=== PATIENT | female | born 1995 | race Caucasian/White ===

== ENCOUNTER 2018-12-24 09:27 | Emergency (ER) | payer OTHER ==
[2018-12-24] MEDS ORDERED: Rocephin 1000 MG INJ IM STA (09:50)
[2018-12-24 09:52] VITALS: O2SAT 98
[2018-12-24] MEDS ORDERED: Sodium Chloride 0.9% 1000 ML 1,000 ML ONE ×2 (09:52→10:04)
[2018-12-24] MEDS ORDERED: TYLENOL 325 MG ONE (09:54)
--- NOTE | 2018-12-24 09:55 | ERPHSYRPT ---
- History of Present Illness Time Seen by Provider: 12/24/18 09:52 Source: patient Exam Limitations: no limitations Patient Subjective Stated Complaint: pt states about 5am woke up with chills and fever 101. took Tylenol. c/o left jaw pain, left side of jaw swollen states wisdom teeth are coming in. pt states I'm not sure if its my wisdom teeth or my breast causing my fever. states she breast feeding and bilat breasts are sore, full, nipples are sore. Triage Nursing Assessment: left side of face swollen. gums swollen on left lower jaw and inflamed, obvious tooth beginning to erupt. bilat breast are full , tender, redness around areola. no discharge noted around areola. Physician History: pt states about 5am woke up with chills and fever 101. took Tylenol. c/o left jaw pain, left side of jaw swollen states wisdom teeth are coming in. pt states "I'm not sure if its my wisdom teeth or my breast causing my fever". states she breast feeding and bilat breasts are sore, full, nipples are sore. Timing/Duration: today Fever Severity: moderate Fever Therapy WARP TIER: Acetaminophen Associated Symptoms: nausea/vomiting (swollen left face, ) Allergies/Adverse Reactions: acetaminophen [From [place]] Allergy (Verified 12/24/18 09:53) hydrocodone [From [place]] Allergy (Verified 12/24/18 09:53) Home Medications: Vits W-Ca,Fe,FA(<1Mg) [] 1 each PO DAILY 12/24/18 [History] Hx Tetanus, Diphtheria Vaccination/Date Given: Yes Hx Influenza Vaccination/Date Given: No Hx Pneumococcal Vaccination/Date Given: No Immunizations Up to Date: Yes - Review of Systems Constitutional: Fever, Chills, Malaise Eyes: No Symptoms Ears, Nose, & Throat: No Symptoms, Other (left side jaw pain) Respiratory: Other (right side breast is tender, milk dischage ), No Cough, No Dyspnea Cardiac: No Chest Pain, No Edema, No Syncope Abdominal/Gastrointestinal: No Abdominal Pain, No Nausea, No Vomiting, No Diarrhea Genitourinary Symptoms: No Dysuria Musculoskeletal: No Back Pain, No Neck Pain Skin: No Rash Neurological: No Dizziness, No Focal Weakness, No Sensory Changes Psychological: No Symptoms Endocrine: No Symptoms All Other Systems: Reviewed and Negative - Past Medical History Pertinent Past Medical History: No Neurological History: No Pertinent History ENT History: No Pertinent History Cardiac History: No Pertinent History Respiratory History: No Pertinent History Endocrine Medical History: No Pertinent History Musculoskeletal History: No Pertinent History GI Medical History: No Pertinent History History: No Pertinent History Psycho-Social History: No Pertinent History Female Reproductive Disorders: No Pertinent History Other Medical History: MISSCARRIAGE 1 YEAR AGO - Past Surgical History Past Surgical History: Yes Neuro Surgical History: No Pertinent History Cardiac: No Pertinent History Respiratory: No Pertinent History Gastrointestinal: No Pertinent History Genitourinary: No Pertinent History Musculoskeletal: No Pertinent History Female Surgical History: No Pertinent History Other Surgical History: Ganleon cyst from wrist - Social History Smoking Status: Never smoker Exposure to second hand smoke: No Drug Use: none Patient Lives Alone: No - Female History Hx Last Menstrual Period: 12/19/18 Hx Now: No (breast feeds 4 month old son) - Nursing Vital Signs Nursing Vital Signs: Initial Vital Signs Temperature 100.5 F 12/24/18 09:28 Pulse Rate 126 H 12/24/18 09:28 Respiratory Rate 18 12/24/18 09:28 Blood Pressure 125/91 12/24/18 09:28 O2 Sat by Pulse Oximetry 98 12/24/18 09:28 Pain Scale Pain Intensity 7 - Physical Exam General Appearance: mild distress, alert Eye Exam: PERRL/EOMI ENT Exam: normal ENT inspection, No pharyngeal erythema, No tonsillar exudate Neck Exam: supple, full range of motion, No meningismus Respiratory Exam: normal breath sounds, lungs clear, no respiratory distress Cardiovascular/Chest Exam: normal heart sounds, regular rate/rhythm, No murmur, No edema Gastrointestinal/Abdominal Exam: soft, non tender, no distention Extremity Exam: non-tender, normal range of motion, normal inspection, normal capillary refill Neurologic Exam: alert, oriented x 3, cooperative, 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, normal mood/affect, sensation nml, No motor deficits Skin Exam: normal color, warm, dry, other (tender right breast), No rash SpO2: 98 - Course Nursing assessment & vital signs reviewed: Yes Ordered Tests: Active Orders 24 hr Category Date Time Status BLOOD CULTURE Stat Lab 12/24/18 10:00 Received CBC W DIFF Stat Lab 12/24/18 09:50 Completed CMP Stat Lab 12/24/18 09:50 Completed Medication Summary Generic Name Dose Route Start Last Admin Trade Name Freq PRN Reason Stop Dose Admin Sodium Chloride 1,000 mls @ 999 mls/hr 12/24/18 09:50 12/24/18 10:08 Sodium Chloride 0.9% 1000 Ml IV 12/24/18 10:50 999 mls/hr .Q1H1M STA Administration Ceftriaxone Sodium/Dextrose 1 g in 50 mls @ 100 mls/hr 12/24/18 10:15 10:23 Rocephin 1 Gm-D5w 50 Ml Bag IV 12/24/18 10:44 100 mls/hr STAT ONE 100 mls/hr Administration Discontinued Medications Generic Name Dose Route Start Last Admin Trade Name Freubaldo PRN Reason Stop Dose Admin Acetaminophen 975 mg 12/24/18 09:50 12/24/18 10:04 Tylenol 325 Mg PO 12/24/18 09:51 975 mg STAT STA Administration Acetaminophen Confirm 12/24/18 09:54 Tylenol 325 Mg Administered 12/24/18 09:55 Dose 975 mg .ROUTE .STK-MED ONE Sodium Chloride Confirm 12/24/18 09:52 Sodium Chloride 0.9% 1000 Ml Administered 12/24/18 09:53 Dose 1,000 mls @ ud .ROUTE .STK-MED ONE Sodium Chloride Confirm 12/24/18 10:04 Sodium Chloride 0.9% 1000 Ml Administered 12/24/18 10:05 Dose 1,000 mls @ ud .ROUTE .STK-MED ONE Lab/Rad Data: Laboratory Result Diagrams 12/24/18 09:50 12/24/18 09:50 Laboratory Results 12/24/18 12/24/18 Range/Units 09:50 09:50 WBC 16.7 H (4.0-10.5) K/mm3 RBC 4.35 (4.1-5.4) M/mm3 Hgb 12.8 (12.0-16.0) gm/dl Hct 37.4 (35-47) % MCV 86.0 (78-100) fl MCH 29.4 (26-32) pg MCHC 34.2 (32-36) g/dl RDW 12.5 (11.5-14.0) % Plt Count 320 (150-450) K/mm3 MPV 9.4 (6-9.5) fl Gran % 81.6 H (36.0-66.0) % Eos # (Auto) 0.09 (0-0.5) Absolute Lymphs (auto) 1.65 (1.0-4.6) Absolute Monos (auto) 1.30 (0.0-1.3) Lymphocytes % 9.9 L (24.0-44.0) % Monocytes % 7.8 (0.0-12.0) % Eosinophils % 0.5 (0.00-5.0) % Basophils % 0.2 (0.0-0.4) % Absolute Granulocytes 13.65 H (1.4-6.9) Basophils # 0.04 (0-0.4) Sodium 141 (137-145) mmol/L Potassium 3.9 (3.5-5.1) mmol/L Chloride 104 (98-107) mmol/L Carbon Dioxide 25 (22-30) mmol/L Anion Gap 15.9 H (5-15) MEQ/L BUN 20 H (7-17) mg/dL Creatinine 0.74 (0.52-1.04) mg/dL Estimated GFR > 60.0 ML/MIN Glucose 90 (74-106) mg/dL Calcium 9.7 (8.4-10.2) mg/dL Total Bilirubin 0.60 (0.2-1.3) mg/dL AST 17 (14-36) U/L ALT 14 (0-35) U/L Alkaline Phosphatase 114 (38-126) U/L Serum Total Protein 7.7 (6.3-8.2) g/dL Albumin 4.4 (3.5-5.0) g/dL - Progress Progress: improved, pain not gone completely Counseled pt/family regarding: lab results, diagnosis, need for follow-up - Departure Departure Disposition: Home Clinical Impression: Mastitis without abscess, Tooth abscess Condition: Stable Critical Care Time: No Referrals: SUSIE JAMES MD [Primary Care Provider] - Instructions: Mastitis (DC), Mastitis, Tooth Abscess (DC) Additional Instructions: Discharge/Care Plan ELLIE VILLAFUERTE was seen on 12/24/18 in the Emergency Room. The patient was counseled regarding Diagnosis,Lab results, Imaging studies, need for follow up and when to return to the Emergency Room. Prescriptions given: Discharge Note I have spoken with the patient and/or caregivers. I have explained the patient' s condition, diagnosis and treatment plan based on the information available to me at this time. I have answered the patient's and/or caregiver's questions and addressed any concerns. The patient and/or caregivers have as good understanding of the patient's diagnosis, condition and treatment plan as can be expected at this point. The vital signs have been stable. The patient's condition is stable and appropriate for discharge from the emergency department. The patient will pursue further outpatient evaluation with the primary care physician or other designated or consulting physician as outlined in the discharge instructions. The patient and/or caregivers are agreeable to this plan of care and follow-up instructions have been explained in detail. The patient and/or caregivers have received these instruction. The patient/and or caregivers are aware that any significant change in condition or worsening of symptoms should prompt an immediate return to this or the closest emergency department or call 911. ELLIE VILLAFUERTE was seen on 12/24/18 n the Emergency Room. At that time you were treated for an emergent condition, during your visit Laboratory, Radiology and/or other procedures may have been ordered. It is very important that you follow-up with your Primary Care Physician SUSIE JAMES within the next 24-48 hours to review your Emergency Room visit and the final results of testing that was ordered. Some test results such as Urine Cultures, Blood Cultures, and other cultures if ordered will not be finalized for 24-48 hours. If you do not have a Primary Care Provider please call the medical records department at [phone] ext [phone] to obtain a copy of your results or you may sign into our patient portal to obtain these results by visiting us @ [email or web address] and completing the following steps: 1. Click on the Patient Portal link 2. Click the Patient Self Enrollment Link to complete the enrollment form and entering your 3. Once the enrollment form is completed you will receive an email with a temporary ID and password at the email address you provided. 4. Next choose a user name and password. Your user name must be at least 4 characters long and your password must be at least 4 characters long. 5. Choose a security question from the list and provide your answer to the question. If you already have signed into the Health Portal you may access your Health Care Information 22/02 by the following steps: 1. Login to our website @ [email or web address] 2. Enter your original user name and password. FAQS The [facility] Health Portal is an online tool that contains your Lab Results, Radiology Reports, Visit History, Discharge Instructions and Health Summary Lab and Radiology Results will not be available for 72 hours on the portal. The Portal is a secure site, passwords are encryted and URLs are re-written so they cannot be copied and pasted. You and authorized family members are the only ones who can access your Portal. Also there is a timeout feature that protects your information if you leave the Portal page open. If you have technical difficulty please use the Contact Us link on the page this will allow you to submit any questions you have regarding the Portal or you may contact the Medical Record Department at [phone] ext [phone]. Prescriptions: Amoxicillin 500 mg Cap [Amoxil 500 mg] 500 mg PO TID #30 capsule
[2018-12-24] MEDS: TYLENOL 325 MG PO STA (10:04)
[2018-12-24] MEDS: Sodium Chloride 0.9% 1000 ML 1,000 ML IV STA (10:08)
[2018-12-24 10:12] LABS: BASOPHIL % 0.2 % (0.0-0.4); Basophil (Absolute #) 0.04 (0-0.4); Eosinophil % 0.5 % (0.00-5.0); Eosinophil (Absolute #) 0.09 (0-0.5); Granulocyte Absolute (ANC) 13.65 (1.4-6.9); Granulocytes % 81.6 % (36.0-66.0); Hematocrit 37.4 % (35-47); Hemoglobin 12.8 gm/dl (12.0-16.0); Lymphocyte (Absolute #) 1.65 (1.0-4.6); Lymphocytes % 9.9 % (24.0-44.0); Mean Corpuscular Hemoglobin 29.4 pg (26-32); Mean Corpuscular Hgb Concent. 34.2 g/dl (32-36); Mean Platelet Volume 9.4 fl (6-9.5); Monocytes % 7.8 % (0.0-12.0); Platelet Count 320 K/mm3 (150-450); Red Blood Count 4.35 M/mm3 (4.1-5.4); Red Cell Distribution Width 12.5 % (11.5-14.0); White Blood Count 16.7 K/mm3 (4.0-10.5)
[2018-12-24 10:23] LABS: ALBUMIN 4.4 g/dL (3.5-5.0); ALKALINE PHOSPHATASE 114 U/L (38-126); ANION GAP 15.9 MEQ/L (5-15); BLOOD UREA NITROGEN 20 mg/dL (7-17); CHLORIDE 104 mmol/L (98-107); Calcium 9.7 mg/dL (8.4-10.2); Carbon Dioxide 25 mmol/L (22-30); Creatinine 1 0.74 mg/dL (0.52-1.04); Glucose 90 mg/dL (74-106); Potassium 3.9 mmol/L (3.5-5.1); SGOT/AST 17 U/L (14-36); SGPT/ALT 14 U/L (0-35); SODIUM 141 mmol/L (137-145); Total Protein 7.7 g/dL (6.3-8.2)
[2018-12-24] MEDS: ROCEPHIN 1 Gm-D5w 50 ml Bag** 1 G/50 ML IVPB IV ONE (10:23)
[2018-12-24 11:17] VITALS: BP 110/67; PULSE 98
== END 2018-12-24 11:15 | disposition home or self-care (01) ==
LOC: ED 09:27
DX: N61.0 Mastitis without abscess (principal); K04.7 Periapical abscess without sinus
CPT/HCPCS: 36415; 80053; 85025; 87040; 87077; 96360; 96365; 99284; J0696; A9270-GY

== ENCOUNTER 2019-10-22 12:46 | Emergency (ER) | payer OTHER ==
[2019-10-22] MEDS ORDERED: XYLOCAINE 1% HCL 20 ML MDV IJ ONE (12:47)
--- NOTE | 2019-10-22 13:14 | ERPHSYRPT ---
- History of Present Illness Time Seen by Provider: 10/22/19 13:13 Source: patient Exam Limitations: no limitations Patient Subjective Stated Complaint: pt reports sore throat starting yesterday. pt reports her two children and mother all have strep throat. pt reports is 35 weeks , pt reports seeing her [facility] this week for routine check. pt reports some hypertension during which is controlled by medication. pt denies any contractions, abdominal pain, leaking of fluids or vaginal bleeding. Triage Nursing Assessment: pt is aox3, pupils perrl, afebrile, resps easy and non labored, pt radial pulses strong and equal, cap refill < 3 seconds, abdomen, no edema noted. throat appears red. Physician History: pt reports sore throat starting yesterday. pt reports her two children and mother all have strep throat. pt reports is 35 weeks , pt reports seeing her [facility] this week for routine check. pt reports some hypertension during which is controlled by medication. pt denies any contractions, abdominal pain, leaking of fluids or vaginal bleeding. Timing/Duration: gradual onset, yesterday Severity: mild ENT Location: throat Prearrival Treatment: no prearrival treatment Associated Symptoms: denies symptoms Allergies/Adverse Reactions: acetaminophen [From [place]] Allergy (Verified 12/24/18 09:53) hydrocodone [From [place]] Allergy (Verified 12/24/18 09:53) Home Medications: Vits W-Ca,Fe,FA(<1Mg) [] 1 each PO DAILY 12/24/18 [History] Hx Tetanus, Diphtheria Vaccination/Date Given: Yes Hx Influenza Vaccination/Date Given: Yes Hx Pneumococcal Vaccination/Date Given: No Immunizations Up to Date: Yes Travel Risk - International Travel Have you traveled outside of the country in past 3 weeks: No Have you or anyone close to you been diagnosed with or: No Do your reside in a community with a known COVID-19 case?: No - Coronavirus Screening Has patient experienced Coronavirus symptoms: No - Review of Systems Constitutional: No Fever, No Chills Eyes: No Symptoms Ears, Nose, & Throat: No Symptoms, Throat Pain Respiratory: No Cough, No Dyspnea Cardiac: No Chest Pain, No Edema, No Syncope Abdominal/Gastrointestinal: No Abdominal Pain, No Nausea, No Vomiting, No Diarrhea Genitourinary Symptoms: No Dysuria Musculoskeletal: No Back Pain, No Neck Pain Skin: No Rash Neurological: No Dizziness, No Focal Weakness, No Sensory Changes Psychological: No Symptoms Endocrine: No Symptoms All Other Systems: Reviewed and Negative - Past Medical History Pertinent Past Medical History: No Neurological History: No Pertinent History ENT History: No Pertinent History Cardiac History: No Pertinent History Respiratory History: No Pertinent History Endocrine Medical History: No Pertinent History Musculoskeletal History: No Pertinent History GI Medical History: No Pertinent History History: No Pertinent History Psycho-Social History: No Pertinent History Female Reproductive Disorders: No Pertinent History Other Medical History: MISCARRIAGE 1 YEAR AGO - Past Surgical History Past Surgical History: Yes Neuro Surgical History: No Pertinent History Cardiac: No Pertinent History Respiratory: No Pertinent History Gastrointestinal: No Pertinent History Genitourinary: No Pertinent History Musculoskeletal: No Pertinent History, Orthopedic Surgery Female Surgical History: No Pertinent History Other Surgical History: Ganglion cyst from wrist - Social History Smoking Status: Never smoker Exposure to second hand smoke: No Drug Use: none Patient Lives Alone: No - Female History Hx Now: Yes Expected Date of Delivery: 11/25/19 - Nursing Vital Signs Nursing Vital Signs: Initial Vital Signs Temperature 98.7 F 10/22/19 12:51 Pulse Rate 125 H 10/22/19 12:51 Respiratory Rate 20 10/22/19 12:51 Blood Pressure 130/89 10/22/19 12:51 O2 Sat by Pulse Oximetry 100 10/22/19 12:51 Pain Scale Pain Intensity 8 - Physical Exam General Appearance: no apparent distress, alert Eye Exam: bilateral eye: PERRL, EOMI Nasal Exam: normal inspection Throat Exam: pharynx normal, moist mucus membranes, pharynx swelling, No tonsillar exudate Neck Exam: supple Cardiovascular/Respiratory Exam: normal breath sounds, regular rate/rhythm Abdominal Exam: non-tender, soft Neurologic Exam: alert, oriented x 3, sensation nml, No motor deficits Skin Exam: normal color, warm, dry SpO2: 100 - Course Nursing assessment & vital signs reviewed: Yes Ordered Tests: Medication Summary Generic Name Dose Route Start Last Admin Trade Name Freq PRN Reason Stop Dose Admin Ceftriaxone Sodium 1,000 mg 10/22/19 13:35 Rocephin 1000 Mg Inj IM 10/22/19 13:36 STAT ONE Lab/Rad Data: Laboratory Results 10/22/19 Range/Units Unknown Group A Strep Antibody DETECTED (NEGATIVE) - Progress Progress: improved Counseled pt/family regarding: lab results, diagnosis, need for follow-up - Departure Departure Disposition: Home Clinical Impression: Strep pharyngitis Condition: Stable Critical Care Time: No Referrals: SUSIE JAMES MD [Primary Care Provider] - Instructions: Sore Throat, Adult (DC) Additional Instructions: ELLIE VILLAFUERTE was seen on 10/22/19 n the Emergency Room. At that time you were treated for an emergent condition, during your visit Laboratory, Radiology and/or other procedures may have been ordered. It is very important that you follow-up with your Primary Care Physician SUSIE JAMES within the next 24-48 hours to review your Emergency Room visit and the final results of testing that was ordered. Some test results such as Urine Cultures, Blood Cultures, and other cultures if ordered will not be finalized for 24-48 hours. If you do not have a Primary Care Provider please call the medical records department at [phone] ext [phone] to obtain a copy of your results or you may sign into our patient portal to obtain these results by visiting us @ [email or web address] and completing the following steps: 1. Click on the Patient Portal link 2. Click the Patient Self Enrollment Link to complete the enrollment form and entering your 3. Once the enrollment form is completed you will receive an email with a temporary ID and password at the email address you provided. 4. Next choose a user name and password. Your user name must be at least 4 characters long and your password must be at least 4 characters long. 5. Choose a security question from the list and provide your answer to the question. If you already have signed into the Health Portal you may access your Health Care Information 22/02 by the following steps: 1. Login to our website @ [email or web address] 2. Enter your original user name and password. FAQS The [facility] Health Portal is an online tool that contains your Lab Results, Radiology Reports, Visit History, Discharge Instructions and Health Summary Lab and Radiology Results will not be available for 72 hours on the portal. The Portal is a secure site, passwords are encryted and URLs are re-written so they cannot be copied and pasted. You and authorized family members are the only ones who can access your Portal. Also there is a timeout feature that protects your information if you leave the Portal page open. If you have technical difficulty please use the Contact Us link on the page this will allow you to submit any questions you have regarding the Portal or you may contact the Medical Record Department at [phone] ext [phone]. Prescriptions: Amoxicillin 500 mg Cap [Amoxil 500 mg] 500 mg PO TID #30 capsule
[2019-10-22] MEDS ORDERED: Rocephin 1000 MG INJ IM ONE (13:35)
[2019-10-22] MEDS ORDERED: Rocephin 1000 MG INJ ONE (13:48)
[2019-10-22 14:12] VITALS: BP 128/80; PULSE 108; O2SAT 99
== END 2019-10-22 14:12 | disposition home or self-care (01) ==
LOC: ED 12:46
DX: J02.0 Streptococcal pharyngitis (principal)
CPT/HCPCS: 87651; 96372; 99284; J0696

== ENCOUNTER 2020-07-15 19:08 | Emergency (ER) | payer OTHER ==
[2020-07-15] MEDS ORDERED: Sodium Chloride 0.9% 1000 ML 1,000 ML ONE ×2 (19:30→21:37)
[2020-07-15] MEDS: Sodium Chloride 0.9% 1000 ML 1,000 ML IV STA ×2 (19:38→21:38)
[2020-07-15] MEDS ORDERED: D5w 100ML Mini Bag 100 ML 100 ML IV ONE (19:52)
--- NOTE | 2020-07-15 19:53 | ERPHSYRPT ---
- History of Present Illness Time Seen by Provider: 07/15/20 19:25 Source: patient Exam Limitations: no limitations Patient Subjective Stated Complaint: pt c/o lt wisdom tooth pain, running fever since Sat, and chills, aches, fatigue Triage Nursing Assessment: pt c/o Lt wisdom tooth pain, running fever since Sat (up to 100.4), chills, body aches and fatigue. pt was exposed to Covid on , quarantined for 14 days. Pt had no symptoms until Wednesday. Physician History: Patient is a 24-year-old female presents to our ED with complaints of pain to her wisdom tooth. Patient also states she has been experiencing fevers body aches for 2 to 3 days. Patient was exposed to Covid on . However symptoms just recently started. No associated nausea or vomiting. No diarrhea. No rash. Patient's pain at her left mandibular molar is described as an ache that is well localized. Pain worse with mastication. Pain improved with rest. Patient denies trauma. No headache. No difficulty swallowing. No pain at the base of her tongue. Patient is otherwise healthy. She voices no other complaints or concerns at this time. Timing/Duration: today Severity: moderate Modifying Factors: Improves With: nothing Associated Symptoms: No nausea, No vomiting, No abdominal pain, No shortness of breath, No diaphoresis, No chills, No chest pain, No headaches, No loss of appetite, No malaise, No syncope Allergies/Adverse Reactions: acetaminophen [From [place]] Adverse Reaction (Mild, Verified 07/15/20 19:25) Rash hydrocodone [From [place]] Adverse Reaction (Mild, Verified 07/15/20 19:25) Rash Hx Tetanus, Diphtheria Vaccination/Date Given: Yes Hx Influenza Vaccination/Date Given: No Hx Pneumococcal Vaccination/Date Given: No Immunizations Up to Date: Yes Travel Risk - International Travel Have you traveled outside of the country in past 3 weeks: No - Coronavirus Screening Symptoms: Fever, Headaches/Body Aches/Fatigue Close contact with a COVID-19 positive Pt in past 14-21 Days: Yes - Review of Systems Constitutional: No Symptoms, No Fever, No Chills Eyes: No Symptoms Ears, Nose, & Throat: No Symptoms Respiratory: No Symptoms, No Cough, No Dyspnea Cardiac: No Symptoms, No Chest Pain, No Edema, No Syncope Abdominal/Gastrointestinal: No Symptoms, No Abdominal Pain, No Nausea, No Vomiting, No Diarrhea Genitourinary Symptoms: No Symptoms, No Dysuria Musculoskeletal: No Symptoms, No Back Pain, No Neck Pain Skin: No Symptoms, No Rash Neurological: No Symptoms, No Dizziness, No Focal Weakness, No Sensory Changes Psychological: No Symptoms Endocrine: No Symptoms Hematologic/Lymphatic: No Symptoms Immunological/Allergic: No Symptoms All Other Systems: Reviewed and Negative - Past Medical History Pertinent Past Medical History: Yes Neurological History: No Pertinent History ENT History: No Pertinent History Cardiac History: No Pertinent History Respiratory History: No Pertinent History Endocrine Medical History: No Pertinent History Musculoskeletal History: No Pertinent History GI Medical History: No Pertinent History History: No Pertinent History Psycho-Social History: No Pertinent History Female Reproductive Disorders: No Pertinent History Other Medical History: MISCARRIAGE 1 YEAR AGO - Past Surgical History Past Surgical History: Yes Neuro Surgical History: No Pertinent History Cardiac: No Pertinent History Respiratory: No Pertinent History Gastrointestinal: No Pertinent History Genitourinary: No Pertinent History Musculoskeletal: Orthopedic Surgery Female Surgical History: No Pertinent History Other Surgical History: Ganglion cyst from wrist - Social History Smoking Status: Never smoker Exposure to second hand smoke: Yes Drug Use: none Patient Lives Alone: No - Female History Hx Now: No - Nursing Vital Signs Nursing Vital Signs: Initial Vital Signs Temperature 98.8 F 07/15/20 19:16 Pulse Rate 137 H 07/15/20 19:16 Respiratory Rate 18 07/15/20 19:16 Blood Pressure 157/94 07/15/20 19:16 O2 Sat by Pulse Oximetry 100 07/15/20 19:16 Pain Scale Pain Intensity 5 - Physical Exam General Appearance: no apparent distress, alert Eye Exam: PERRL/EOMI, eyes nml inspection Ears, Nose, Throat Exam: normal ENT inspection, TMs normal, pharynx normal, moist mucous membranes, other (Tooth #17 is tender. The adjacent gingiva is swollen and tender. No obvious facial swelling. No trismus. No sublingual masses. Patient tolerating oral secretions well.) Neck Exam: normal inspection, non-tender, supple, full range of motion Respiratory Exam: normal breath sounds, lungs clear, No respiratory distress Cardiovascular Exam: normal heart sounds, normal peripheral pulses, other (And his tachycardia rate 137.) Gastrointestinal/Abdomen Exam: soft, normal bowel sounds, No tenderness, No mass Back Exam: normal inspection, normal range of motion, No CVA tenderness, No vertebral tenderness Extremity Exam: normal inspection, normal range of motion, pelvis stable Neurologic Exam: alert, oriented x 3, cooperative, normal mood/affect, nml cerebellar function, nml station & gait, sensation nml, No motor deficits Skin Exam: normal color, warm, dry, No rash Lymphatic Exam: No adenopathy SpO2 Interpretation: normal SpO2: 99 O2 Delivery: Room Air - Course Nursing assessment & vital signs reviewed: Yes EKG Interpreted by Me: RATE, Sinus Rhythm, Sinus Tach (118), NORMAL AXIS, NORMAL INTERVALS Ordered Tests: Active Orders 24 hr Category Date Time Status Dungeon Master STAT Care 07/15/20 19:20 Active EKG-ER Only STAT Care 07/15/20 19:18 Active IV Insertion STAT Care 07/15/20 19:18 Active Pulse Oximetry (ED) STAT Care 07/15/20 19:18 Active BLOOD CULTURE Stat Lab 07/15/20 19:53 Received CBC W DIFF Stat Lab 07/15/20 19:53 Completed CMP Stat Lab 07/15/20 19:53 Completed CULTURE,URINE Stat Lab 07/15/20 19:46 Received D-DIMER QUANTITATIVE Stat Lab 07/15/20 19:53 Completed HCG,QUALITATIVE URINE Stat Lab 07/15/20 19:46 Completed INFLUENZA A+B FRANCO Stat Lab 07/15/20 19:43 Completed Lactic Acid Stat Lab 07/15/20 20:30 Completed MAGNESIUM Stat Lab 07/15/20 19:53 Completed TROPONIN Q3H Lab 07/15/20 19:52 Completed TROPONIN Q3H Lab 07/15/20 22:30 Ordered TROPONIN Q3H Lab 07/16/20 01:30 Ordered TROPONIN Q3H Lab 07/16/20 04:30 Ordered TROPONIN Q3H Lab 07/16/20 07:30 Ordered Medication Summary Generic Name Dose Route Start Last Admin Trade Name Freq PRN Reason Stop Dose Admin Sodium Chloride 1,000 mls @ 999 mls/hr 07/15/20 21:34 07/15/20 21:38 Sodium Chloride 0.9% 1000 Ml IV 07/15/20 22:34 999 mls/hr .Q1H1M STA Administration Discontinued Medications Generic Name Dose Route Start Last Admin Trade Name Freq PRN Reason Stop Dose Admin Acetaminophen 975 mg 07/15/20 21:50 Tylenol 325 Mg PO 07/15/20 21:51 STAT ONE Sodium Chloride 1,000 mls @ 999 mls/hr 07/15/20 19:18 07/15/20 20:39 Sodium Chloride 0.9% 1000 Ml IV 07/15/20 20:18 Infused .Q1H1M STA Infusion Sodium Chloride Confirm 07/15/20 19:30 Sodium Chloride 0.9% 1000 Ml Administered 07/15/20 19:31 Dose 1,000 mls @ ud .ROUTE .STK-MED ONE Dextrose Confirm 07/15/20 19:52 D5w 100ml Mini Bag 100 Ml Administered 07/15/20 19:53 Dose 100 mls @ ud IV .STK-MED ONE Sodium Chloride Confirm 07/15/20 21:37 Sodium Chloride 0.9% 1000 Ml Administered 07/15/20 21:38 Dose 1,000 mls @ ud .ROUTE .STK-MED ONE Lab/Rad Data: Laboratory Result Diagrams 07/15/20 19:53 07/15/20 19:53 Laboratory Results 07/15/20 07/15/20 07/15/20 Range/Units 20:30 19:55 19:53 WBC (4.0-10.5) K/mm3 RBC (4.1-5.4) M/mm3 Hgb (12.0-16.0) gm/dl Hct (35-47) % MCV (78-100) fl MCH (26-32) pg MCHC (32-36) g/dl RDW (11.5-14.0) % Plt Count (150-450) K/mm3 MPV (7.5-11.0) fl Gran % (36.0-66.0) % Eos # (Auto) (0-0.5) Absolute Lymphs (auto) (1.0-4.6) Absolute Monos (auto) (0.0-1.3) Lymphocytes % (24.0-44.0) % Monocytes % (0.0-12.0) % Eosinophils % (0.00-5.0) % Basophils % (0.0-0.4) % Absolute Granulocytes (1.4-6.9) Basophils # (0-0.4) D-Dimer 348 (215-500) ng/mL Sodium (137-145) mmol/L Potassium (3.5-5.1) mmol/L Chloride (98-107) mmol/L Carbon Dioxide (22-30) mmol/L Anion Gap (5-15) MEQ/L BUN (7-17) mg/dL Creatinine (0.52-1.04) mg/dL Estimated GFR ML/MIN Glucose (74-106) mg/dL Lactic Acid 0.9 (0.4-2.0) Calcium (8.4-10.2) mg/dL Magnesium (1.6-2.3) mg/dL Total Bilirubin (0.2-1.3) mg/dL AST (14-36) U/L ALT (0-35) U/L Alkaline Phosphatase (38-126) U/L Troponin I (0.000-0.034) ng/mL Serum Total Protein (6.3-8.2) g/dL Albumin (3.5-5.0) g/dL Urinalys Dipstick Clnc Urine Color (YELLOW) Urine Appearance (CLEAR) Urine pH (5-6) Ur Specific [place] (1.005-1.025) POC Urine Protein Conf (Negative) Urine Ketones (NEGATIVE) Urine Nitrite (NEGATIVE) Urine Bilirubin (NEGATIVE) Urine Urobilinogen (0-1) mg/dL Urine Leukocytes (NEGATIVE) Urine WBC (Auto) (0-5) /HPF Urine RBC (Auto) (0-2) /HPF U Epithel Cells (Auto) (FEW) /HPF Urine Bacteria (Auto) (NEGATIVE) /HPF Urine RBC (0-5) Sukhdeep/ul Urine Mucus (Auto) (NEGATIVE) /HPF Ur Culture Indicated? Urine Glucose (NEGATIVE) mg/dL Urine HCG, Qual (Negative) Influenza Type A Ag (NEGATIVE) Influenza Type B Ag (NEGATIVE) Group A Strep Antibody NOT DETECTED (NEGATIVE) 07/15/20 07/15/20 07/15/20 Range/Units 19:53 19:53 19:53 WBC 12.3 H (4.0-10.5) K/mm3 RBC 4.27 (4.1-5.4) M/mm3 Hgb 12.7 (12.0-16.0) gm/dl Hct 38.0 (35-47) % MCV 89.0 (78-100) fl MCH 29.7 (26-32) pg MCHC 33.4 (32-36) g/dl RDW 12.2 (11.5-14.0) % Plt Count 399 (150-450) K/mm3 MPV 9.5 (7.5-11.0) fl Gran % 75.1 H (36.0-66.0) % Eos # (Auto) 0.03 (0-0.5) Absolute Lymphs (auto) 1.97 (1.0-4.6) Absolute Monos (auto) 1.05 (0.0-1.3) Lymphocytes % 16.0 L (24.0-44.0) % Monocytes % 8.5 (0.0-12.0) % Eosinophils % 0.2 (0.00-5.0) % Basophils % 0.2 (0.0-0.4) % Absolute Granulocytes 9.25 H (1.4-6.9) Basophils # 0.02 (0-0.4) D-Dimer (215-500) ng/mL Sodium 136 L (137-145) mmol/L Potassium 3.7 (3.5-5.1) mmol/L Chloride 104 (98-107) mmol/L Carbon Dioxide 23 (22-30) mmol/L Anion Gap 13.1 (5-15) MEQ/L BUN 16 (7-17) mg/dL Creatinine 0.76 (0.52-1.04) mg/dL Estimated GFR > 60.0 ML/MIN Glucose 102 (74-106) mg/dL Lactic Acid (0.4-2.0) Calcium 9.4 (8.4-10.2) mg/dL Magnesium 1.7 (1.6-2.3) mg/dL Total Bilirubin 0.40 (0.2-1.3) mg/dL AST 19 (14-36) U/L ALT 13 (0-35) U/L Alkaline Phosphatase 105 (38-126) U/L Troponin I (0.000-0.034) ng/mL Serum Total Protein 8.0 (6.3-8.2) g/dL Albumin 4.1 (3.5-5.0) g/dL Urinalys Dipstick Clnc Urine Color (YELLOW) Urine Appearance (CLEAR) Urine pH (5-6) Ur Specific [place] (1.005-1.025) POC Urine Protein Conf (Negative) Urine Ketones (NEGATIVE) Urine Nitrite (NEGATIVE) Urine Bilirubin (NEGATIVE) Urine Urobilinogen (0-1) mg/dL Urine Leukocytes (NEGATIVE) Urine WBC (Auto) (0-5) /HPF Urine RBC (Auto) (0-2) /HPF U Epithel Cells (Auto) (FEW) /HPF Urine Bacteria (Auto) (NEGATIVE) /HPF Urine RBC (0-5) Sukhdeep/ul Urine Mucus (Auto) (NEGATIVE) /HPF Ur Culture Indicated? Urine Glucose (NEGATIVE) mg/dL Urine HCG, Qual (Negative) Influenza Type A Ag (NEGATIVE) Influenza Type B Ag (NEGATIVE) Group A Strep Antibody (NEGATIVE) 07/15/20 07/15/20 07/15/20 Range/Units 19:52 19:46 19:46 WBC (4.0-10.5) K/mm3 RBC (4.1-5.4) M/mm3 Hgb (12.0-16.0) gm/dl Hct (35-47) % MCV (78-100) fl MCH (26-32) pg MCHC (32-36) g/dl RDW (11.5-14.0) % Plt Count (150-450) K/mm3 MPV (7.5-11.0) fl Gran % (36.0-66.0) % Eos # (Auto) (0-0.5) Absolute Lymphs (auto) (1.0-4.6) Absolute Monos (auto) (0.0-1.3) Lymphocytes % (24.0-44.0) % Monocytes % (0.0-12.0) % Eosinophils % (0.00-5.0) % Basophils % (0.0-0.4) % Absolute Granulocytes (1.4-6.9) Basophils # (0-0.4) D-Dimer (215-500) ng/mL Sodium (137-145) mmol/L Potassium (3.5-5.1) mmol/L Chloride (98-107) mmol/L Carbon Dioxide (22-30) mmol/L Anion Gap (5-15) MEQ/L BUN (7-17) mg/dL Creatinine (0.52-1.04) mg/dL Estimated GFR ML/MIN Glucose (74-106) mg/dL Lactic Acid (0.4-2.0) Calcium (8.4-10.2) mg/dL Magnesium (1.6-2.3) mg/dL Total Bilirubin (0.2-1.3) mg/dL AST (14-36) U/L ALT (0-35) U/L Alkaline Phosphatase (38-126) U/L Troponin I < 0.012 (0.000-0.034) ng/mL Serum Total Protein (6.3-8.2) g/dL Albumin (3.5-5.0) g/dL Urinalys Dipstick Clnc MAIN LAB Urine Color YELLOW (YELLOW) Urine Appearance CLEAR (CLEAR) Urine pH 6.0 (5-6) Ur Specific [place] >=1.030 (1.005-1.025) POC Urine Protein Conf TRACE (Negative) Urine Ketones TRACE (NEGATIVE) Urine Nitrite NEGATIVE (NEGATIVE) Urine Bilirubin NEGATIVE (NEGATIVE) Urine Urobilinogen 2 (0-1) mg/dL Urine Leukocytes TRACE (NEGATIVE) Urine WBC (Auto) 6-10 (0-5) /HPF Urine RBC (Auto) 6-10 (0-2) /HPF U Epithel Cells (Auto) RARE (FEW) /HPF Urine Bacteria (Auto) NONE SEEN (NEGATIVE) /HPF Urine RBC SMALL (0-5) Sukhdeep/ul Urine Mucus (Auto) SLIGHT (NEGATIVE) /HPF Ur Culture Indicated? YES Urine Glucose NEGATIVE (NEGATIVE) mg/dL Urine HCG, Qual NEGATIVE (Negative) Influenza Type A Ag (NEGATIVE) Influenza Type B Ag (NEGATIVE) Group A Strep Antibody (NEGATIVE) 07/15/20 Range/Units 19:43 WBC (4.0-10.5) K/mm3 RBC (4.1-5.4) M/mm3 Hgb (12.0-16.0) gm/dl Hct (35-47) % MCV (78-100) fl MCH (26-32) pg MCHC (32-36) g/dl RDW (11.5-14.0) % Plt Count (150-450) K/mm3 MPV (7.5-11.0) fl Gran % (36.0-66.0) % Eos # (Auto) (0-0.5) Absolute Lymphs (auto) (1.0-4.6) Absolute Monos (auto) (0.0-1.3) Lymphocytes % (24.0-44.0) % Monocytes % (0.0-12.0) % Eosinophils % (0.00-5.0) % Basophils % (0.0-0.4) % Absolute Granulocytes (1.4-6.9) Basophils # (0-0.4) D-Dimer (215-500) ng/mL Sodium (137-145) mmol/L Potassium (3.5-5.1) mmol/L Chloride (98-107) mmol/L Carbon Dioxide (22-30) mmol/L Anion Gap (5-15) MEQ/L BUN (7-17) mg/dL Creatinine (0.52-1.04) mg/dL Estimated GFR ML/MIN Glucose (74-106) mg/dL Lactic Acid (0.4-2.0) Calcium (8.4-10.2) mg/dL Magnesium (1.6-2.3) mg/dL Total Bilirubin (0.2-1.3) mg/dL AST (14-36) U/L ALT (0-35) U/L Alkaline Phosphatase (38-126) U/L Troponin I (0.000-0.034) ng/mL Serum Total Protein (6.3-8.2) g/dL Albumin (3.5-5.0) g/dL Urinalys Dipstick Clnc Urine Color (YELLOW) Urine Appearance (CLEAR) Urine pH (5-6) Ur Specific [place] (1.005-1.025) POC Urine Protein Conf (Negative) Urine Ketones (NEGATIVE) Urine Nitrite (NEGATIVE) Urine Bilirubin (NEGATIVE) Urine Urobilinogen (0-1) mg/dL Urine Leukocytes (NEGATIVE) Urine WBC (Auto) (0-5) /HPF Urine RBC (Auto) (0-2) /HPF U Epithel Cells (Auto) (FEW) /HPF Urine Bacteria (Auto) (NEGATIVE) /HPF Urine RBC (0-5) Sukhdeep/ul Urine Mucus (Auto) (NEGATIVE) /HPF Ur Culture Indicated? Urine Glucose (NEGATIVE) mg/dL Urine HCG, Qual (Negative) Influenza Type A Ag NEGATIVE (NEGATIVE) Influenza Type B Ag POSITIVE (NEGATIVE) Group A Strep Antibody (NEGATIVE) - Progress Progress: improved Progress Note: 07/15/20 22:00 Patient reassessed. Pain improved. Vital stable. Patient was initially tachycardic upon arrival. Heart rate normalized. After IV fluid administration. Work-up significant for influenza B. Covid pending. Rapid strep negative. Will discharge home with a prescription for penicillin VK. Patient will call her dentist within 48 hours for reevaluation. Patient agrees to follow-up with her primary care doctor within 48 hours for reevaluation. Counseled pt/family regarding: lab results, diagnosis, need for follow-up - Departure Departure Disposition: Home Clinical Impression: Influenza B, Dental abscess Condition: Stable Critical Care Time: No Referrals: SUSIE JAMES MD [Primary Care Provider] - Additional Instructions: Discharge/Care Plan ELLIE VILLAFUERTE was seen on 07/15/20 in the Emergency Room. The patient was counseled regarding Diagnosis,Lab results, Imaging studies, need for follow up and when to return to the Emergency Room. Prescriptions given: Discharge Note I have spoken with the patient and/or caregivers. I have explained the patient's condition, diagnosis and treatment plan based on the information available to me at this time. I have answered the patient's and/or caregiver's questions and addressed any concerns. The patient and/or caregivers have as good understanding of the patient's diagnosis, condition and treatment plan as can be expected at this point. The vital signs have been stable. The patient's condition is stable and appropriate for discharge from the emergency department. The patient will pursue further outpatient evaluation with the primary care physician or other designated or consulting physician as outlined in the discharge instructions. The patient and/or caregivers are agreeable to this plan of care and follow-up instructions have been explained in detail. The patient and/or caregivers have received these instruction. The patient/and or caregivers are aware that any significant change in condition or worsening of symptoms should prompt an immediate return to this or the closest emergency department or call 911. Prescriptions: Penicillin V Potassium 500 mg PO QID 7 Days #28 tablet
[2020-07-15 20:08] LABS: Absolute Neutrophil Ct (ANC) 9.25 (1.4-6.9); BASOPHIL % 0.2 % (0.0-0.4); Basophil (Absolute #) 0.02 (0-0.4); Eosinophil % 0.2 % (0.00-5.0); Eosinophil (Absolute #) 0.03 (0-0.5); Hemoglobin 12.7 gm/dl (12.0-16.0); Lymphocyte (Absolute #) 1.97 (1.0-4.6); Mean Corpuscular Hemoglobin 29.7 pg (26-32); Mean Corpuscular Hgb Concent. 33.4 g/dl (32-36); Mean Platelet Volume 9.5 fl (7.5-11.0); Monocyte (Absolute #) 1.05 (0.0-1.3); Monocytes % 8.5 % (0.0-12.0); Neutrophil % 75.1 % (36.0-66.0); Platelet Count 399 K/mm3 (150-450); Red Blood Count 4.27 M/mm3 (4.1-5.4); Red Cell Distribution Width 12.2 % (11.5-14.0); White Blood Count 12.3 K/mm3 (4.0-10.5)
[2020-07-15 20:18] LABS: ALBUMIN 4.1 g/dL (3.5-5.0); ALKALINE PHOSPHATASE 105 U/L (38-126); ANION GAP 13.1 MEQ/L (5-15); BLOOD UREA NITROGEN 16 mg/dL (7-17); CHLORIDE 104 mmol/L (98-107); Calcium 9.4 mg/dL (8.4-10.2); Carbon Dioxide 23 mmol/L (22-30); Creatinine 1 0.76 mg/dL (0.52-1.04); EST GLOMERULAR FILTRATION RATE > 60.0 ML/MIN; Glucose 102 mg/dL (74-106); Potassium 3.7 mmol/L (3.5-5.1); SGOT/AST 19 U/L (14-36); SGPT/ALT 13 U/L (0-35); SODIUM 136 mmol/L (137-145)
[2020-07-15 20:24] LABS: INFLUENZA A NEGATIVE (NEGATIVE)
[2020-07-15 20:25] LABS: INFLUENZA B POSITIVE (NEGATIVE)
[2020-07-15 20:35] LABS: Appearance CLEAR (CLEAR); Bilirubin NEGATIVE (NEGATIVE); Glucose NEGATIVE (NEGATIVE); Ketones TRACE (NEGATIVE); RBC SMALL Ery/ul (0-5); Specific Gravity >=1.030 (1.005-1.025)
[2020-07-15 20:36] LABS: Dipstick done @ ? MAIN LAB; Nitrite NEGATIVE (NEGATIVE); Protein,Urine Dip TRACE (Negative); Urobilinogen 2 mg/dL (0-1)
[2020-07-15 21:06] LABS: Epithelial Cells RARE /HPF (FEW); Mucus SLIGHT /HPF (NEGATIVE)
[2020-07-15 21:07] LABS: Bacteria NONE SEEN /HPF (NEGATIVE)
[2020-07-15] MEDS ORDERED: TYLENOL 325 MG ONE (21:58)
[2020-07-15] MEDS: TYLENOL 325 MG PO ONE (21:59)
[2020-07-15 22:10] VITALS: BP 116/78; PULSE 98; O2SAT 100
== END 2020-07-15 22:22 | disposition home or self-care (01) ==
LOC: ED 19:08
DX: J11.1 Influenza due to unidentified influenza virus with other respiratory manifestations (principal); K04.7 Periapical abscess without sinus
CPT/HCPCS: 36000; 36415; 80053; 81015; 83605; 83735; 84484; 84703; 85025; 85379; 87040; 87086; 87400; 87651; 93005; 93041; 94760; 96360; 99284; U0003; A9270-GY

== ENCOUNTER 2023-07-30 12:05 | Emergency (ER) | payer OTHER ==
--- NOTE | 2023-07-30 12:17 | ERPHSYRPT ---
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 Patient does take Adderall each day. She has not increased that dose. She has not been using any illicit drugs. There are no new stressors in her life per her report. Patient has no known cardiac disease. Patient has not had a fever. She denies cough. She has had no chills. Patient denies abdominal pain. She denies nausea vomiting diarrhea symptoms. I did review an old EKG from 07/15/2020 which did show sinus tachycardia with a heart rate of 118. Timing/Duration: yesterday Severity: mild Associated Symptoms: shortness of breath (With deep inspiration) Allergies/Adverse Reactions: acetaminophen [From [facility]] Adverse Reaction (Mild, Verified 07/30/23 12:14) Rash hydrocodone [From [facility]] Adverse Reaction (Mild, Verified 07/30/23 12:14) Rash Home Medications: Dextroamphetamine/Amphetamine [Adderall 10 mg Tablet] 10 mg PO DAILY 07/30/23 [History] Hx Tetanus, Diphtheria Vaccination/Date Given: Yes Hx Influenza Vaccination/Date Given: No Hx Pneumococcal Vaccination/Date Given: No Travel Risk - International Travel Have you traveled outside of the country in past 3 weeks: No - Coronavirus Screening Are you exhibiting any of the following symptoms?: No Close contact with a COVID-19 positive Pt in past 14-21 Days: No - Review of Systems Constitutional: No Symptoms Eyes: No Symptoms Ears, Nose, & Throat: No Symptoms Respiratory: Dyspnea (With deep inspiration only) Cardiac: Palpitations Abdominal/Gastrointestinal: No Symptoms Genitourinary Symptoms: No Symptoms Musculoskeletal: No Symptoms Skin: No Symptoms Neurological: No Symptoms Psychological: No Symptoms Endocrine: No Symptoms Hematologic/Lymphatic: No Symptoms Immunological/Allergic: No Symptoms All Other Systems: Reviewed and Negative - Past Medical History Pertinent Past Medical History: Yes Neurological History: No Pertinent History ENT History: No Pertinent History Cardiac History: No Pertinent History Respiratory History: No Pertinent History Endocrine Medical History: No Pertinent History Musculoskeletal History: No Pertinent History GI Medical History: No Pertinent History History: No Pertinent History Psycho-Social History: No Pertinent History Female Reproductive Disorders: No Pertinent History Other Medical History: MISCARRIAGE 1 YEAR AGO - Past Surgical History Past Surgical History: Yes Neuro Surgical History: No Pertinent History Cardiac: No Pertinent History Respiratory: No Pertinent History Gastrointestinal: No Pertinent History Genitourinary: No Pertinent History Musculoskeletal: Orthopedic Surgery Female Surgical History: No Pertinent History Other Surgical History: Ganglion cyst from wrist - Social History Smoking Status: Never smoker Exposure to second hand smoke: Yes Drug Use: none Patient Lives Alone: No - Nursing Vital Signs Nursing Vital Signs: Initial Vital Signs Temperature 98.5 F 07/30/23 12:12 Pulse Rate 116 H 07/30/23 12:12 Respiratory Rate 18 07/30/23 12:12 Blood Pressure 115/81 07/30/23 12:12 O2 Sat by Pulse Oximetry 100 07/30/23 12:12 Pain Scale Pain Intensity 4 - Physical Exam General Appearance: no apparent distress, alert, anxiety Eye Exam: PERRL/EOMI, eyes nml inspection Ears, Nose, Throat Exam: normal ENT inspection, moist mucous membranes Neck Exam: normal inspection, non-tender, supple, full range of motion Respiratory Exam: normal breath sounds, lungs clear, airway intact, No chest tenderness, No respiratory distress Cardiovascular Exam: tachycardia Gastrointestinal/Abdomen Exam: soft (Mild), normal bowel sounds, No tenderness Pelvic Exam: not done Rectal Exam: not done Back Exam: normal inspection, normal range of motion, No CVA tenderness, No vertebral tenderness Extremity Exam: normal inspection, normal range of motion, pelvis stable Neurologic Exam: alert, oriented x 3, cooperative, backside grinder II-XII nml as tested, normal mood/affect, nml cerebellar function, nml station & gait, sensation nml Skin Exam: normal color, warm, dry Lymphatic Exam: No adenopathy SpO2 Interpretation: normal O2 Delivery: Room Air - Course Nursing assessment & vital signs reviewed: Yes EKG Interpreted by Me: RATE ([id number]), Sinus Tach, NORMAL AXIS, NORMAL INTERVALS, NORMAL QRS, NORMAL ST-T, Other (No acute ischemic changes on today's twelve-lead EKG.) Ordered Tests: Active Orders 24 hr Category Date Time Status Cane Flume Watchman STAT Care 07/30/23 13:08 Active EKG-ER Only STAT Care 07/30/23 13:07 Active IV Insertion STAT Care 07/30/23 13:07 Active Pulse Oximetry (ED) STAT Care 07/30/23 13:07 Active CHEST 1 VIEW (PORTABLE) Stat Exams 07/30/23 13:07 Completed CBC W DIFF Stat Lab 07/30/23 13:07 Completed CMP Stat Lab 07/30/23 13:10 Completed D-DIMER QUANTITATIVE Stat Lab 07/30/23 13:10 Completed MONO SCREEN Stat Lab 07/30/23 13:10 Completed TROPONIN Q4H Lab 07/30/23 13:10 Completed TROPONIN Q4H Lab 07/30/23 17:15 Ordered TROPONIN Q4H Lab 07/30/23 21:15 Ordered Transfer Order Routine Transfer 07/30/23 Ordered Medication Summary Discontinued Medications Generic Name Dose Route Start Last Admin Trade Name Freq PRN Reason Stop Dose Admin Aspirin 324 mg 07/30/23 13:07 07/30/23 13:14 Aspirin 81 Mg Tab.Chew PO 07/30/23 13:08 324 mg STAT ONE Administration Aspirin Confirm 07/30/23 13:13 Aspirin 81 Mg Tab.Chew Administered 07/30/23 13:14 Dose 324 mg .ROUTE .STMd7-MED ONE Lab/Rad Data: Laboratory Result Diagrams 07/30/23 13:07 07/30/23 13:10 Laboratory Results 07/30/23 07/30/23 07/30/23 Range/Units 13:15 13:10 13:10 WBC (4.0-10.5) x10^3/uL RBC (4.1-5.4) x10^6/uL Hgb (12.0-16.0) g/dL Hct (35-47) % MCV (78-100) fL MCH (26-32) pg MCHC (32-36) g/dL RDW (11.5-14.0) % Plt Count (150-450) x10^3/uL MPV (7.5-11.0) fL Gran % (36.0-66.0) % Immature Gran % (Auto) (0.00-0.4) % Nucleat RBC Rel Count (0.00-0.1) % Eos # (Auto) (0-0.5) x10^3/uL Immature Gran # (Auto) (0.00-0.03) x10^3u/L Absolute Lymphs (auto) (1.0-4.6) x10^3/uL Absolute Monos (auto) (0.0-1.3) x10^3/uL Absolute Nucleated RBC (0.00-0.01) x10^3u/L Lymphocytes % (24.0-44.0) % Monocytes % (0.0-12.0) % Eosinophils % (0.00-5.0) % Basophils % (0.0-0.4) % Absolute Granulocytes (1.4-6.9) x10^3/uL Basophils # (0-0.4) x10^3/uL D-Dimer (0.0-0.50) mg/L Sodium (137-145) mmol/L Potassium (3.5-5.1) mmol/L Chloride (98-107) mmol/L Carbon Dioxide (22-30) mmol/L Anion Gap (5-15) MEQ/L BUN (7-17) mg/dL Creatinine (0.52-1.04) mg/dL Estimated GFR ML/MIN Glucose (74-106) mg/dL Calcium (8.4-10.2) mg/dL Total Bilirubin (0.2-1.3) mg/dL AST (14-36) U/L ALT (0-35) U/L Alkaline Phosphatase (38-126) U/L Troponin I 0.120 H* (0.000-0.034) ng/mL Serum Total Protein (6.3-8.2) g/dL Albumin (3.5-5.0) g/dL Monoscreen NEGATIVE (NEGATIVE) Influenza Type A Ag NEGATIVE (NEGATIVE) Influenza Type B Ag NEGATIVE (NEGATIVE) RSV (PCR) NEGATIVE (NEGATIVE) SARS-CoV-2 (PCR) NEGATIVE (NEGATIVE) 07/30/23 07/30/23 07/30/23 Range/Units 13:10 13:10 13:07 WBC 10.6 H (4.0-10.5) x10^3/uL RBC 4.33 (4.1-5.4) x10^6/uL Hgb 12.6 (12.0-16.0) g/dL Hct 37.5 (35-47) % MCV 86.6 (78-100) fL MCH 29.1 (26-32) pg MCHC 33.6 (32-36) g/dL RDW 12.1 (11.5-14.0) % Plt Count 322 (150-450) x10^3/uL MPV 9.2 (7.5-11.0) fL Gran % 68.1 H (36.0-66.0) % Immature Gran % (Auto) 0.2 (0.00-0.4) % Nucleat RBC Rel Count 0.0 (0.00-0.1) % Eos # (Auto) 0.07 (0-0.5) x10^3/uL Immature Gran # (Auto) 0.02 (0.00-0.03) x10^3u/L Absolute Lymphs (auto) 2.42 (1.0-4.6) x10^3/uL Absolute Monos (auto) 0.82 (0.0-1.3) x10^3/uL Absolute Nucleated RBC 0.00 (0.00-0.01) x10^3u/L Lymphocytes % 22.8 L (24.0-44.0) % Monocytes % 7.7 (0.0-12.0) % Eosinophils % 0.7 (0.00-5.0) % Basophils % 0.5 (0.0-0.4) % Absolute Granulocytes 7.25 H (1.4-6.9) x10^3/uL Basophils # 0.05 (0-0.4) x10^3/uL D-Dimer < 0.19 (0.0-0.50) mg/L Sodium 136 L (137-145) mmol/L Potassium 3.8 (3.5-5.1) mmol/L Chloride 104 (98-107) mmol/L Carbon Dioxide 26 (22-30) mmol/L Anion Gap 9.6 (5-15) MEQ/L BUN 8 (7-17) mg/dL Creatinine 0.65 (0.52-1.04) mg/dL Estimated GFR 122.9 ML/MIN Glucose 93 (74-106) mg/dL Calcium 9.1 (8.4-10.2) mg/dL Total Bilirubin 0.50 (0.2-1.3) mg/dL AST 19 (14-36) U/L ALT 11 (0-35) U/L Alkaline Phosphatase 69 (38-126) U/L Troponin I (0.000-0.034) ng/mL Serum Total Protein 7.0 (6.3-8.2) g/dL Albumin 4.1 (3.5-5.0) g/dL Monoscreen (NEGATIVE) Influenza Type A Ag (NEGATIVE) Influenza Type B Ag (NEGATIVE) RSV (PCR) (NEGATIVE) SARS-CoV-2 (PCR) (NEGATIVE) - Progress Progress: improved Progress Note: 07/30/23 13:36 This patient's medical issue is 1 of moderate complexity. The level complex in the workup performed is based on review the patient's past medical history, review the patient's medication list, review of patient's drug allergy list, history present illness and physical findings on examination. This patient appears to be very anxious but we will place an intravenous line, we will perform a twelve-lead EKG, CBC, CMP, troponin level, chest x-ray, D-dimer level 07/30/23 13:37 07/30/23 13:46 Chest x-ray was interpreted by the radiologist and I reviewed the impression. The impression is stated as a normal chest x-ray with no evidence of any acute cardiopulmonary process. 07/30/23 15:03 I interpreted the patient's laboratory data results. Patient has an elevated troponin level. It was double checked at the time it was being run. Patient has no known cardiac history. Repeat twelve-lead EKG was performed at 1500 on 07/30/2023. This twelve-lead EKG shows resolution of the tachycardia with a heart rate of 86 bpm and normal sinus rhythm. There is no evidence of any abnormal QRS or abnormal interval. There is normal axis deviation. There is no evidence of any acute ischemic changes on this repeat twelve-lead EKG. 07/30/23 15:[address] Matson, the telehospitalist on today. I reviewed the patient history, the presenting complaint, the workup performed and the results of the workup. He accepts placing the patient in observation. Counseled pt/family regarding: lab results, diagnosis, need for follow-up, rad results Medical Desision Making - Independent Historian Additional History obtained from: Relative/friend - Diagnostic Testing Diagnostic test were ordered, analyzed, and reviewed by me: Yes Radiological Interpretation: Reviewed by me, Teleradiologist Report - Risk of complications The pt has a high risk of morbidity or mortality based on: Decision regarding hospitilization or escalation of hosp level of care - Departure Departure Disposition: Observation Clinical Impression: Chest pain, Tachycardia, Elevated troponin Condition: Stable Critical Care Time: No Referrals: SUSIE JAMES MD [ACTIVE STAFF] - Follow up/PCP as directed
[2023-07-30 12:29] VITALS: TEMP 98.5
[2023-07-30] MEDS ORDERED: BABY ASPIRIN 81 MG CHEW PO ONE (13:07)
[2023-07-30] MEDS ORDERED: BABY ASPIRIN 81 MG CHEW ONE (13:13)
[2023-07-30 13:20] LABS: Absolute Neutrophil Ct (ANC) 7.25 x10^3/uL (1.4-6.9); BASOPHIL % 0.5 % (0.0-0.4); Basophil (Absolute #) 0.05 x10^3/uL (0-0.4); Eosinophil % 0.7 % (0.00-5.0); Eosinophil (Absolute #) 0.07 x10^3/uL (0-0.5); Hematocrit 37.5 % (35-47); Hemoglobin 12.6 g/dL (12.0-16.0); IMMATURE GRAN # 0.02 x10^3u/L (0.00-0.03); IMMATURE GRAN % 0.2 % (0.00-0.4); Lymphocyte (Absolute #) 2.42 x10^3/uL (1.0-4.6); Lymphocytes % 22.8 % (24.0-44.0); Mean Cell Volume 86.6 fL (78-100); Mean Corpuscular Hemoglobin 29.1 pg (26-32); Mean Corpuscular Hgb Concent. 33.6 g/dL (32-36); Mean Platelet Volume 9.2 fL (7.5-11.0); Monocyte (Absolute #) 0.82 x10^3/uL (0.0-1.3); Monocytes % 7.7 % (0.0-12.0); Neutrophil % 68.1 % (36.0-66.0); Platelet Count 322 x10^3/uL (150-450); Red Blood Count 4.33 x10^6/uL (4.1-5.4); Red Cell Distribution Width 12.1 % (11.5-14.0); White Blood Count 10.6 x10^3/uL (4.0-10.5)
--- NOTE | 2023-07-30 13:31 | XRAY ---
Indication: Painful respiration. Comparison: None Portable chest demonstrates normal heart, lungs, and bony thorax.
[2023-07-30 13:34] LABS: ALBUMIN 4.1 g/dL (3.5-5.0); ANION GAP 9.6 MEQ/L (5-15); BILIRUBIN,TOTAL 0.5 mg/dL (0.2-1.3); Calcium 9.1 mg/dL (8.4-10.2); Creatinine 1 0.65 mg/dL (0.52-1.04); EST GLOMERULAR FILTRATION RATE 122.9 ML/MIN; Potassium 3.8 mmol/L (3.5-5.1)
[2023-07-30 14:04] LABS: INFLUENZA A NEGATIVE (NEGATIVE); INFLUENZA B NEGATIVE (NEGATIVE); RESPIRATORY SYNCTIAL VIRUS NEGATIVE (NEGATIVE); SARS-CoV-2 Xpert Express NEGATIVE (NEGATIVE)
[2023-07-30 16:03] VITALS: O2SAT 100
[2023-07-30 17:02] VITALS: BP 112/67; PULSE 89; RESP 21
== END 2023-07-30 17:36 | disposition short-term general hospital (02) ==
LOC: ED 12:05
DX: R00.0 Tachycardia, unspecified (principal); R07.9 Chest pain, unspecified; R77.8 Other specified abnormalities of plasma proteins; R06.02 Shortness of breath; Z79.899 Other long term (current) drug therapy
CPT/HCPCS: 0241U; 36000; 36415; 71045; 80053; 84484; 85025; 85379; 86308; 93005; 93041; 94760; 99285; A9270-GY